=== PATIENT | male | born 1960 | race Two or more races ===

== ENCOUNTER 2021-05-29 17:29 | Emergency (ER) | payer OTHER ==
[~2021-05-29] VITALS: Ht 182.9 cm; Wt 88.9 kg
--- NOTE | 2021-05-29 18:11 | NUR ---
TO ER BED 3, [id number], FOR SYNCOPAL EPISODE @ [facility] S/P PLASMA DONATION, BG 378, AAOX4, BREATHING EVEN AND UNLABORED, NO COMPLAIN OF PAIN OR DIZZINESS, ATTACHED TO MONITOR
[2021-05-29] MEDS: IV NS 0.9% 1,000 ML IV ONE (18:31)
--- NOTE | 2021-05-29 18:37 | NUR ---
[employer] AT BEDSIDE
[2021-05-29 18:56] LABS: BASOPHILS # (AUTO) 0.1 K/uL (0.0-0.2); BASOPHILS % (AUTO) 0.6 % (0.0-2.0); EOSINOPHILS % (AUTO) 2.5 % (0.0-6.0); HEMATOCRIT 49 % (39-51); MEAN CORPUSCULAR HGB CONC 33 g/dl (31.0-36.0); MEAN CORPUSCULAR VOLUME 89 fL (80-96); MONOCYTES # (AUTO) 0.7 K/uL (0.1-1.30); MONOCYTES % (AUTO) 6.5 % (2.0-12.0); NEUTROPHILS # (AUTO) 9.3 K/uL (1.8-8.9); NEUTROPHILS % (AUTO) 81.4 % (43.0-81.0); PLATELET COUNT (AUTO) 284 K/uL (150-450); RED BLOOD CELL COUNT(AUTO) 5.55 MIL/uL (4.5-6.0); WHITE BLOOD COUNT (AUTO) 11.4 K/uL (4.3-11.0)
[2021-05-29 18:59] LABS: ABG BASE EXCESS -3.2 mmol/L; ABG PCO2 41.8 mmHg (35.0-45.0); ABG PH 7.346 (7.350-7.450); ABG PO2 19.2 mmHg (75.0-100.0); COHb 1.1 % (0.5-1.5); MetHb 0.9 % (0.0-1.5); O2Hb 26.5 % (94.0-97.0); SITE, ABG Other; VENT MODE, BG ROOM AIR
[2021-05-29 19:09] LABS: ALANINE AMINOTRANSFERASE 15 U/L (12-78); ALBUMIN 2.9 g/dL (3.4-5.0); ALKALINE PHOSPHATASE 65 U/L (46-116); ASPARTATE AMINOTRANSFERASE 10 U/L (15-37); BILIRUBIN,DIRECT 0.1 mg/dL (0.0-0.2); BILIRUBIN,TOTAL 0.4 mg/dL (0.2-1.0); CALCIUM, SERUM 8.5 mg/dL (8.5-10.1); CARBON DIOXIDE 27 mmol/L (21-32); CHLORIDE 101 mmol/L (98-107); CREATININE 1.5 mg/dL (0.6-1.3); POTASSIUM 5.5 mmol/L (3.5-5.1); SODIUM SERUM 134 mmol/L (136-145); TOTAL PROTEIN, SERUM 6.1 g/dL (6.4-8.2); UREA NITROGEN, BLOOD 18 mg/dL (7-18)
[2021-05-29 19:11] LABS: GLUCOSE 381 mg/dL (74-106)
--- NOTE | 2021-05-29 19:29 | NUR ---
recieved report from [facility].
[2021-05-29] MEDS ORDERED: METF-881 PO (20:50)
[2021-05-29] MEDS ORDERED: GLIP10TA11 PO (20:52)
[2021-05-29 21:02] VITALS: BP 110/80
--- NOTE | 2021-05-29 21:02 | NUR ---
Patient discharged to home in stable condition. Written and verbal after care instructions given. Patient verbalizes understanding of instruction. RX given
== END 2021-05-29 21:04 | disposition home or self-care (01) ==
LOC: ER 17:34
DX: R55 Syncope and collapse (principal); E11.65 Type 2 diabetes mellitus with hyperglycemia; N28.9 Disorder of kidney and ureter, unspecified; E87.5 Hyperkalemia; F43.10 Post-traumatic stress disorder, unspecified; F20.9 Schizophrenia, unspecified; F41.9 Anxiety disorder, unspecified; Z79.84 Long term (current) use of oral hypoglycemic drugs
CPT/HCPCS: 36415; 36600; 70450; 71045; 80048; 80076; 82803; 82962; 84484; 85025; 85730; 93005; 96360; 99285; J7030